=== PATIENT | male | born 1960 | race Caucasian/White ===

== ENCOUNTER 2024-05-02 16:05 | Emergency (ER) | payer BC, SELFPAY ==
[2024-05-02] VITALS (11 sets, daily range): BP systolic 135–162; BP diastolic 71–77; PULSE 48–61; RESP 18; TEMP 36.5–36.9; O2SAT 90–100; BMI 26.4
[2024-05-02] MEDS: MECLIZINE HCL 12.5 MG TABLET 50 MG PO (16:53)
[2024-05-02] MEDS: ONDANSETRON 4 MG/2 ML INJ IV (16:53)
[2024-05-02 17:25] LABS: Add Manual Diff / Slide Review NO; Basophils Absolute Auto 0 /uL (0-100); Basophils Percent Auto 0.5 % (0-2); Eosinophils Absolute Auto 100 /uL (0-450); Eosinophils Percent Auto 1.2 % (2-4); Hematocrit 42.1 % (41-53); Hemoglobin 14.4 g/dL (13.5-17.5); Lymphocytes Absolute Auto 1400 /uL (1100-4500); Lymphocytes Percent Auto 20.1 % (25-40); Mean Corpuscular HGB Conc 34.3 % (30-36); Mean Corpuscular Hemoglobin 30.3 PG (26-34); Mean Corpuscular Volume 88.4 fL (80-100); Monocytes Absolute Auto 400 /uL (0-900); Monocytes Percent Auto 5.9 % (3-14); Neutrophils Absolute Auto 5100 /uL (1500-7000); Neutrophils Percent Auto 72.3 % (50-75); Platelet Count 209 X10^3/uL (150-400); Red Blood Cell Count 4.77 X10^6/uL (4.5-5.9); Red Cell Distribution Width 13.1 % (11.6-14.8)
[2024-05-02 17:31] LABS: Alanine Aminotransferase 19 IU/L (<50); Albumin 4.3 g/dL (3.5-5.0); Albumin Globulin Ratio 1.4 (1.0-2.8); Alkaline Phosphatase 61 U/L (38-126); Aspartate Aminotransferase 32 IU/L (17-59); BUN Creatinine Ratio 17.6 (6-22); Bilirubin Total 0.7 mg/dL (0.2-1.3); Blood Urea Nitrogen 25 mg/dL (9-20); Calcium 8.9 mg/dL (8.4-10.2); Carbon Dioxide 23 mmol/L (22-32); Chloride 110 mmol/L (98-107); Estimated Glomerular Filt Rate 55 mL/min (>60); Globulin 3.1 g/dL (1.7-4.1); Glucose 114 mg/dL (80-110); HEMOLYSIS < 15 (0-50); Potassium 4.1 mmol/L (3.4-5.1); Sodium 139 mmol/L (137-145); Total Protein 7.4 g/dL (6.3-8.2)
[2024-05-02 19:34] LABS: Troponin I < 0.012 ng/mL (0.01-0.034)
--- NOTE | 2024-05-02 19:49 | PC.NURSE ---
pt reports feeling much better after having meclizine and zofran, see MAR. had the patient sit at the edge of bed and feels almost all the way back to normal, reporting only some dizziness
--- NOTE | 2024-05-02 19:57 | DI.CT.S_ITS ---
PROCEDURE: CT HEAD/BRAIN WO CON INDICATIONS: dizziness TECHNIQUE: Noncontrast 4.5 mm thick angled axial sections acquired from the foramen magnum to the vertex, with coronal and sagittal reformats. For radiation dose reduction, the following was used: automated exposure control, adjustment of mA and/or kV according to patient size. COMPARISON: None. FINDINGS: Image quality: Diagnostic. CSF spaces: Basal cisterns are patent. No extra-axial fluid collections. The ventricles are symmetric in size and shape. Brain: No intracranial bleeds or masses. There is cerebral volume loss for age, with resultant ventricular and sulcal prominence. There are periventricular and deep white matter chronic small vessel ischemic changes. There is intracranial internal carotid artery atherosclerosis. Skull and face: Calvarium and visualized facial bones appear intact, without suspicious lesions. Sinuses: Visualized sinuses and mastoids are clear. IMPRESSION: No acute intracranial pathology. Dictated by: Nathan Montiel M.D. on 05/02/2024 at 20:47 Approved by: Nathan Montiel M.D. on 05/02/2024 at 20:49
[2024-05-02] MEDS: SODIUM CHLORIDE 0.9% 1,000 ML 1000 ML IV (20:12)
--- NOTE | 2024-05-02 20:22 | EKG_ITS ---
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
--- NOTE | 2024-05-02 20:40 | ED_ITS ---
HPI - Dizziness General Chief Complaint: Dizziness Stated Complaint: Dizzyness, Vomiting Time Seen by Provider: 05/02/24 19:11 Source: patient Mode of arrival: Ambulatory History of Present Illness HPI Narrative: 63-year-old male with dizziness spinning sensation onset this morning, some nausea with nonbloody emesis, sense of imbalance through the day, denies recent fevers or chills, denies recent cough or cold symptoms, denies allergies. No change in medications or new medications. No history of stroke problems. No weakness or numbness to face arm or leg. No visual disturbances. He had not tried any [id number] other medications. Related Data Previous Rx's Medication Instructions Recorded meclizine 25 mg tablet 25 mg PO TID 7 days #21 tabs 05/02/24 Allergies Allergy/AdvReac Type Severity Reaction Status Date / Time No Known Drug Allergies Allergy Verified 05/02/24 16:47 Review of Systems Review of Systems Narrative: see HPI Patient History Social History Smoking Status: Never smoker Smoking Status: Never smoker alcohol intake frequency: a few times a week Alcohol type: wine Substance Use Type: does not use Exam Narrative Exam Narrative: GENERAL: Well-developed patient, in mild distress. HEAD: Atraumatic. Normocephalic. No problems moving head [id number] her chin to chest, did not cause any dizziness sensation EYES: Pupils equal round and reactive. Extraocular motions intact. No scleral icterus. No injection or drainage. ENT: Nose without bleeding, purulent drainage. Throat without erythema, tonsillar hypertrophy or exudate. Airway patent. NECK: Trachea midline. Non tender CARDIOVASCULAR: Regular rate and rhythm without murmurs, gallops, or rubs. RESPIRATORY: Clear to auscultation. Breath sounds equal bilaterally. No wheezes, rales, or rhonchi. GASTROINTESTINAL: Abdomen soft, non-tender, nondistended. EXTREMITIES: No edema or joint tenderness. BACK: Nontender without deformity or crepitance. No flank tenderness. NEURO: AOx3. Motor 5/5 upper extremities and lower extremities. Cranial nerves intact. Light touch sensation intact face arm and legs. [id number] testing normal. SKIN: No rash or erythema of visible areas Initial Vital Signs Initial Vital Signs: Vital Signs Temperature 98.5 F 05/02/24 16:23 Pulse Rate 58 L 05/02/24 16:23 Respiratory Rate 18 05/02/24 16:23 Blood Pressure 153/73 H 05/02/24 16:23 Pulse Oximetry 99 05/02/24 16:23 Oxygen Delivery Method Room Air 05/02/24 16:23 Course Orders Ordered: ED Orders 05/02/24 19:11 EKG-12 Lead Stat 05/02/24 19:57 CT head/brain wo con Stat 05/02/24 21:05 Urinalysis and Microscopic Stat Discontinued Medications Sodium Chloride (Normal Saline 0.9%) 1,000 mls @ 1,000 mls/hr IV BOLUS ONE Stop: 05/02/24 20:55 Last Infusion: 05/02/24 21:00 Dose: Infused Documented By: Admin: 05/02/24 20:12 Dose: 1,000 mls/hr Documented By: PAULA Meclizine HCl (Meclizine Hcl 12.5 Mg Tablet) 50 mg PO NOW ONE Stop: 05/02/24 16:49 Last Admin: 05/02/24 16:53 Dose: 50 mg Documented By: WINSTON Ondansetron HCl (Ondansetron 4 Mg/2 Ml Inj) 4 mg IV NOW PRN PRN Reason: Nausea And Vomiting Last Admin: 05/02/24 16:53 Dose: 4 mg Documented By: WINSTON Ondansetron HCl (Ondansetron 4 Mg Odt) 4 mg SL NOW PRN PRN Reason: Nausea And Vomiting Vital Signs Vital signs: Vital Signs - 8 hr 05/02/24 18:45 05/02/24 18:46 05/02/24 18:46 Temperature Pulse Rate 51 L 51 L Respiratory Rate Blood Pressure 162/76 H Pulse Oximetry 99 99 05/02/24 19:00 05/02/24 19:00 05/02/24 19:30 Temperature Pulse Rate 48 L Respiratory Rate Blood Pressure 139/71 151/76 H Pulse Oximetry 100 05/02/24 19:30 05/02/24 20:00 05/02/24 20:00 Temperature Pulse Rate 57 L 53 L Respiratory Rate 18 Blood Pressure 135/72 Pulse Oximetry 99 98 05/02/24 20:30 05/02/24 21:05 05/02/24 21:06 Temperature Pulse Rate 54 L 61 Respiratory Rate Blood Pressure 156/75 H Pulse Oximetry 98 90 L 05/02/24 21:06 05/02/24 21:30 05/02/24 21:30 Temperature Pulse Rate 59 L 56 L Respiratory Rate Blood Pressure 140/77 Pulse Oximetry 98 97 05/02/24 21:46 Temperature 97.7 F Pulse Rate Respiratory Rate Blood Pressure Pulse Oximetry MDM - Dizziness Lab Data Attestation: I reviewed the patient's lab results. 05/02/24 16:40 05/02/24 16:40 Labs: Lab Results 05/02/24 05/02/24 Range/Units 16:40 21:05 WBC 7.0 (4.5-11.0) X10^3/uL RBC 4.77 (4.5-5.9) X10^6/uL Hgb 14.4 (13.5-17.5) g/dL Hct 42.1 (41-53) % MCV 88.4 (80-100) fL MCH 30.3 (26-34) PG MCHC 34.3 (30-36) % RDW 13.1 (11.6-14.8) % Plt Count 209 (150-400) X10^3/uL Neut % (Auto) 72.3 (50-75) % Lymph % (Auto) 20.1 L (25-40) % [place] % (Auto) 5.9 (3-14) % Eos % (Auto) 1.2 L (2-4) % Baso % (Auto) 0.5 (0-2) % Neut # (Auto) 5100 (5023-1318) /uL Lymph # (Auto) 1400 (0256-3163) /uL [place] # (Auto) 400 (0-900) /uL Eos # (Auto) 100 (0-450) /uL Baso # (Auto) 0 (0-100) /uL Sodium 139 (137-145) mmol/L Potassium 4.1 (3.4-5.1) mmol/L Chloride 110 H (98-107) mmol/L Carbon Dioxide 23 (22-32) mmol/L BUN 25 H (9-20) mg/dL Creatinine 1.42 H (0.66-1.25) mg/dL Estimated GFR 55 L (>60) mL/min BUN/Creatinine Ratio 17.6 (6-22) Glucose 114 H (80-110) mg/dL Calcium 8.9 (8.4-10.2) mg/dL Total Bilirubin 0.7 (0.2-1.3) mg/dL AST 32 (17-59) IU/L ALT 19 (<50) IU/L Alkaline Phosphatase 61 (38-126) U/L Troponin I < 0.012 (0.01-0.034) ng/mL Total Protein 7.4 (6.3-8.2) g/dL Albumin 4.3 (3.5-5.0) g/dL Globulin 3.1 (1.7-4.1) g/dL Albumin/Globulin Ratio 1.4 (1.0-2.8) Urine Color Yellow Urine Appearance Clear Urine pH 7.0 (4.5-8.0) Ur Specific [place] 1.015 (1.000-1.035) Urine Protein Negative (Negative) Urine Glucose (UA) Negative (Negative) g/dL Urine Ketones Trace H (NEGATIVE) Urine Occult Blood Negative (Negative) Urine Nitrate Negative (Negative) Urine Bilirubin Negative (NEGATIVE) Urine Urobilinogen 0.2 (0.2) E.U./dL Ur Leukocyte Esterase Negative (NEGATIVE) Urine RBC None seen (0-5/HPF) Urine WBC None seen (0-5/HPF) Ur Squamous Epith Cells 0-1 /hpf (0-5/HPF) Amorphous Sediment 1+ Urine Bacteria None seen (None) Ur Culture Indicated? Cult not indicated Vol Urine Centrifuged 10ml (spun) Urine Dip Bedside Urine Glucose Negative Bedside Urine Bilirubin - Negative Bedside Urine Ketone +/- 5 Urine Specific [place] 1.015 Bedside Urine Occult Blood - Negative Bedside Urine pH 6.5 Bedside Urine Protein - Negative Bedside Urine Urobilinogen - Negative Bedside Urine Nitrite - Negative Bedside Urine Leukocytes - Negative Esterase Imaging Data CT scan - head: Radiologist's Impression: Close Head CT (Signed) TianaNathan - 05/02/[address] [address] [address] Scan Report Signed Patient: Kal Tobin MR#: [id number] : 1960 Acct:[id number] Age/Sex: 63 / M Date of Service: 05/02/24 Loc: ED Accession Number: [id number] Procedure: CT head/brain wo con Ordering Provider: Roque Alexandra MD PROCEDURE: CT HEAD/BRAIN WO CON INDICATIONS: dizziness TECHNIQUE: Noncontrast 4.5 mm thick angled axial sections acquired from the foramen magnum to the vertex, with coronal and sagittal reformats. For radiation dose reduction, the following was used: automated exposure control, adjustment of mA and/or kV according to patient size. COMPARISON: None. FINDINGS: Image quality: Diagnostic. CSF spaces: Basal cisterns are patent. No extra-axial fluid collections. The ventricles are symmetric in size and shape. Brain: No intracranial bleeds or masses. There is cerebral volume loss for age, with resultant ventricular and sulcal prominence. There are periventricular and deep white matter chronic small vessel ischemic changes. There is intracranial internal carotid artery atherosclerosis. Skull and face: Calvarium and visualized facial bones appear intact, without suspicious lesions. Sinuses: Visualized sinuses and mastoids are clear. IMPRESSION: No acute intracranial pathology. Dictated by: Nathan Montiel M.D. on 05/02/2024 at 20:47 Approved by: Nathan Montiel M.D. on 05/02/2024 at 20:49 ECG Data Attestation: I personally reviewed and interpreted this ECG as follows: Interpretation: Sinus bradycardia with rate of 51. No obvious ST segment elevation or depression changes. IL 196, QRS 106, QTC 414. [facility] Narrative Medical decision making narrative: 63-year-old male with acute vertigo symptoms, at triage was given antinausea medication, also oral meclizine, IV fluids given, symptoms significantly improved. Able to move head [id number], and able to ambulate in the emergency department. CT head study negative, see radiology report. Screening labs unremarkable. Electrolytes normal. EKG unremarkable. Symptoms significantly improved, they would like to go home. Prescription for meclizine to send to local pharmacy, they will fill the medication and follow up in their home [facility] area early next week. Return precautions discussed. Improved, stable, home with . Critical Care Time Critical Care Time Critical Care Time: Yes Total Critical Care Time: 31 Attestation: The high probability of a clinically significant, sudden or life threatening deterioration of the [cerebrovascular, neurologic, vertebrobasilar] system(s) required my full and direct attention, intervention and personal management. The aggregate critical care time was [31] minutes. This time is in addition to time spent performing reported procedures but includes the following: [x] Data Review and interpretation [x] Patient assessment and monitoring of vital signs [x] Documentation [x] Medication orders and management Discharge Plan Departure Patient Disposition: Home Clinical Impression: Vertigo Instructions: DI for Vertigo Activity Restrictions/Additional Instructions: Acute vertigo symptoms today, significantly improved after IV fluids and oral meclizine and anti nausea medications. Able to move head and body well, ambulate now without difficulties with turning and movements in the emergency department. CT head study showed no acute changes per radiologist's interpretation report. Screening labs unremarkable. EKG unremarkable. Consider further use of oral meclizine for the next few days to 1 week, prescription sent to local pharmacy to fill tomorrow morning. Could consider Jeremy maneuver, either on your own with YouTube like video instructions, or also could consider physical therapy consultation if symptoms persist on arrival back to your home [facility] area. You will be in the area for the next 1 week. Follow up then with your regular provider, further workup for now as an outpatient. Prescriptions: New meclizine 25 mg tablet 25 mg PO TID 7 Days Qty: 21 0RF Stand Alone Forms: Patient Portal/API
[2024-05-02 21:16] LABS: Appearance Urine UA CLEAR; Bilirubin Urine UA NEGATIVE (NEGATIVE); Color Urine UA YELLOW; Glucose Urine UA NEGATIVE (Negative); Ketones Urine UA TRACE (NEGATIVE); Leukocyte Esterase Urine UA NEGATIVE (NEGATIVE); Nitrite Urine UA NEGATIVE (Negative); Occult Blood Urine UA NEGATIVE (Negative); Protein Urine UA NEGATIVE (Negative); Specific Gravity Urine UA 1.015 (1.000-1.035); Urobilinogen Urine UA 0.2 E.U./dL (0.2)
[2024-05-02 21:18] LABS: Urine Volume 10mL (spun)
[2024-05-02 21:24] LABS: Amorphous Sediment Urine 1+; Bacteria Urine None Seen; RBC Urine None Seen (0-5/HPF); Squamous Epithelial Cell Urine 0-1 /HPF (0-5/HPF); WBC Urine None Seen (0-5/HPF)
[2024-05-02 21:25] LABS: Culture Indicated Urine Cult Not Indicated
== END 2024-05-02 21:40 | disposition home or self-care (01) ==
PROVIDERS: Emergency Medicine; Emergency Provider Emergency Medicine
DX: R42 Dizziness and giddiness (principal); R11.2 Nausea with vomiting, unspecified; R00.1 Bradycardia, unspecified
CPT/HCPCS: 70450; 80053; 81001; 81003; 84484; 85025; 93005; 96361; 96374; 99284; J2405